=== PATIENT | male | born 1975 | race Caucasian/White ===

== ENCOUNTER 2018-01-25 13:02 | Outpatient (REF) | payer MEDICARE, MEDICAID, SELFPAY ==
[2018-01-25 22:47] LABS: Abs Immature Grans 0.03 k/cumm (0.0-0.09); Absolute Basophil Count 0.03 k/cumm (0.0-0.2); Absolute Eosinophil Count 0.13 k/cumm (0.0-0.7); Absolute Lymphocyte Count 3.97 k/cumm (1.2-3.4); Absolute Monocyte Count 0.66 k/cumm (0.11-0.7); Absolute Neutrophil Count 4.84 k/cumm (1.2-6.7); Basophils % 0.3; Eosinophils % 1.3; HCT 41.4 % (40.0-50.0); HGB 13.8 g/dL (13.5-17.5); Immature Grans % 0.3; Lymphocytes % 41.1; Mean Corp. HGB Concentration 33.3 g/dL (32.0-36.0); Mean Corpuscular Hemoglobin 31.4 pg (27.0-33.0); Mean Corpuscular Volume 94.1 fL (80-95); Mean Platelet Volume 10.7 fL (8.0-11.0); Monocytes % 6.8; Neutrophils % 50.2; Platelet Count 284 x1000/uL (130-400); White Blood Cell Count 9.66 k/cumm (4.4-10.8)
[2018-01-25 22:56] LABS: ALT 31 U/L (12-78); AST 13 U/L (15-37); Albumin 3.8 g/dL (3.4-5.0); Alkaline Phosphatase 72 U/L (46-116); Anion Gap 7.8 mmol/L (3-11); BUN 9 mg/dL (7-18); Bilirubin, Total 0.3 mg/dL (0.2-1.0); CO2 30.2 mmol/L (21.0-32.0); CREATININE 0.94 mg/dL (0.70-1.30); Calcium 9.3 mg/dL (8.5-10.1); Chloride 106 mmol/L (98-107); Cholesterol 208 mg/dL (50-200); Glucose 87 mg/dL (70-100); HDL Cholesterol 41 mg/dL (40-60); LDL CHOLESTEROL 133 mg/dL (<100); Potassium 4.5 mmol/L (3.5-5.1); Sodium 144 mmol/L (136-145); Total Protein 7.4 g/dL (6.4-8.2); Triglyceride 188 mg/dL (30-150)
== END 2018-01-25 13:22 ==
LOC: NCHCN 13:02
PROVIDERS: Visit Provider Internal Medicine
DX: E78.5 Hyperlipidemia, unspecified (principal); Z51.81 Encounter for therapeutic drug level monitoring
CPT/HCPCS: 80053; 80061; 83721; 85025

== ENCOUNTER 2019-02-22 17:24 | Outpatient (REF) | payer MEDICARE, MEDICAID, SELFPAY ==
[2019-02-22 22:21] LABS: Abs Immature Grans 0.01 k/cumm (0.0-0.09); Absolute Basophil Count 0.03 k/cumm (0.0-0.2); Absolute Eosinophil Count 0.06 k/cumm (0.0-0.7); Absolute Lymphocyte Count 3.06 k/cumm (1.2-3.4); Absolute Monocyte Count 0.48 k/cumm (0.11-0.7); Absolute Neutrophil Count 3.11 k/cumm (1.2-6.7); Basophils % 0.4; Eosinophils % 0.9; HCT 43.1 % (40.0-50.0); HGB 14.8 g/dL (13.5-17.5); Immature Grans % 0.1 %; Lymphocytes % 45.3; Mean Corp. HGB Concentration 34.3 g/dL (32.0-36.0); Mean Corpuscular Hemoglobin 31.3 pg (27.0-33.0); Mean Corpuscular Volume 91.1 fL (80-95); Monocytes % 7.1; Neutrophils % 46.2; Platelet Count 289 x1000/uL (130-400); RBC 4.73 m/cumm (4.50-6.00); RBC Distribution Width 13.1 % (11.8-14.1); White Blood Cell Count 6.75 k/cumm (4.4-10.8)
[2019-02-22 22:39] LABS: ALT 18 U/L (16-63); AST 13 U/L (15-37); Albumin 4.2 g/dL (3.4-5.0); Alkaline Phosphatase 85 U/L (46-116); Anion Gap 9.4 mmol/L (3-11); BUN 15 mg/dL (7-18); Bilirubin, Total 0.4 mg/dL (0.2-1.0); CO2 28.6 mmol/L (21.0-32.0); CREATININE 1.07 mg/dL (0.70-1.30); Calcium 9.8 mg/dL (8.5-10.1); Calculated LDL 118 mg/dL; Chloride 103 mmol/L (98-107); Cholesterol 204 mg/dL (<200); Glucose 77 mg/dL (74-106); HDL Cholesterol 45 mg/dL (40-60); Potassium 4.3 mmol/L (3.5-5.1); Sodium 141 mmol/L (136-145); Triglyceride 207 mg/dL (<150)
== END 2019-02-22 17:44 ==
LOC: NCHCN 17:24
PROVIDERS: Visit Provider Internal Medicine
DX: E78.89 Other lipoprotein metabolism disorders (principal); R56.9 Unspecified convulsions; Z51.81 Encounter for therapeutic drug level monitoring
CPT/HCPCS: 80053; 80061; 80164; 85025

== ENCOUNTER 2020-03-03 15:40 | Outpatient (REF) | payer MEDICARE, MEDICAID, SELFPAY ==
[2020-03-07 12:03] LABS: Testosterone, Free 2.75 ng/dL (4.46-17.1); Testosterone, Total 86 ng/dL (240-950)
== END 2020-03-03 16:00 ==
LOC: NCHCN 15:40
PROVIDERS: Visit Provider Internal Medicine
DX: Z51.81 Encounter for therapeutic drug level monitoring (principal); Z13.29 Encounter for screening for other suspected endocrine disorder
CPT/HCPCS: 84402; 84403

== ENCOUNTER 2020-11-07 11:57 | Outpatient (REF) | payer MEDICARE, MEDICAID, SELFPAY ==
[2020-11-18 13:46] LABS: Testosterone, Total 571 ng/dL (240-950)
== END 2020-11-07 11:58 | disposition home or self-care (01) ==
LOC: NCHCN 11:57
PROVIDERS: Visit Provider Internal Medicine
DX: E29.1 Testicular hypofunction (principal)
CPT/HCPCS: 84402; 84403

== ENCOUNTER 2021-08-21 17:45 | Outpatient (REF) | payer MEDICARE, MEDICAID, SELFPAY ==
[2021-08-21 18:08] LABS: Calculated LDL 114 mg/dL (<100); Cholesterol 202 mg/dL (<200); HDL Cholesterol 45 mg/dL (40-60); Triglyceride 218 mg/dL (<150)
[2021-09-11 11:34] LABS: Testosterone, Free 32.1 ng/dL (4.26-16.4); Testosterone, Total 728 ng/dL (240-950)
== END 2021-08-21 17:46 | disposition home or self-care (01) ==
LOC: NCHCN 17:45
PROVIDERS: Visit Provider Nurse Practitioner Family
DX: R79.89 Other specified abnormal findings of blood chemistry (principal); E29.1 Testicular hypofunction
CPT/HCPCS: 80061; 84402; 84403

== ENCOUNTER 2021-12-21 15:52 | Outpatient (REF) | payer MEDICARE, MEDICAID, SELFPAY ==
[2021-12-21 15:59] LABS: Calculated LDL 77 mg/dL (<100); Cholesterol 157 mg/dL (<200); HDL Cholesterol 53 mg/dL (40-60); Triglyceride 136 mg/dL (<150)
[2021-12-28 15:29] LABS: Testosterone, Free 4.07 ng/dL (4.26-16.4); Testosterone, Total 128 ng/dL (240-950)
== END 2021-12-21 15:53 | disposition home or self-care (01) ==
LOC: NCHCN 15:52
PROVIDERS: Visit Provider Nurse Practitioner Family
DX: E78.5 Hyperlipidemia, unspecified (principal); E29.1 Testicular hypofunction
CPT/HCPCS: 80061; 84402; 84403

== ENCOUNTER 2023-03-23 17:49 | Outpatient (REF) | payer MEDICARE, MEDICAID, SELFPAY ==
[2023-03-23 16:04] LABS: HCT 39.5 % (40.0-50.0); HGB 13.6 g/dL (13.5-17.5); MCH 31.3 pg (27.0-33.0); MCHC 34.4 % (32.0-36.0); MCV 91 fL (80-95); Platelet Count 285 10^3/uL (130-400); RBC 4.34 10^6/uL (4.36-5.78); RDW 13.2 % (11.8-14.1); RDW-SD 44.5 fL; WBC 6.99 10^3/uL (4.4-10.8)
[2023-03-23 17:16] LABS: ALT 45 U/L (16-63); AST 22 U/L (15-37); Albumin 4.1 g/dL (3.4-5.0); Alkaline Phosphatase 89 U/L (46-116); Anion Gap 13.8 mmol/L (3-11); BUN 20 mg/dL (7-18); Bilirubin, Total 0.4 mg/dL (0.2-1.0); CO2 23.2 mmol/L (21.0-32.0); Calcium 9.9 mg/dL (8.5-10.1); Calculated LDL 68 mg/dL (<100); Chloride 107 mmol/L (98-107); Cholesterol 145 mg/dL (<200); Estimated GFR 93.42 (mL/min/1.73m2); Glucose 105 mg/dL (74-106); HDL Cholesterol 48 mg/dL (40-60); Potassium 4.8 mmol/L (3.5-5.1); Sodium 144 mmol/L (136-145); Total Protein 8.1 g/dL (6.4-8.2); Triglyceride 149 mg/dL (<150)
--- OUTSIDE RECORDS SUMMARY | 2023-03-23 17:51 | XMS_ITS | CCD ---
Author Name Unknown Address [address] [place] [address] [phone] Organization Unknown Address [address] [place] [address] [phone] Care Team Providers Care Sound Editor Name Role Phone GONZALO MONTEZ Attending Physician [phone] GONZALO MONTEZ Rounding (Secondary) Physician [phone] Vital Signs Unknown or Not Available. Allergies Allergy Code Allergy Type Reaction Status No Known Allergies {Clinical monitoring unavailable} 0 Drug allergy Active Procedures Unknown or Not Available. History of Immunizations Unknown or Not Available. Problems Unknown or Not Available. Results Unknown or Not Available. Active Medications Unknown or Not Available. Medications Administered During Visit Unknown or Not Available. Encounters Encounter Diagnosis Diagnosis Code Start Date Chest pain, unspecified R079 10/10/19 22 Social History Smoking Status Code Start Date End Date Current every day smoker [id number] Patient Decision Aids Unknown or Not Available. Discharge Instructions You were admitted to [facility] on 10/09/2021 15:03 with a principal diagnosis of Chest pain, unspecified You were discharged from [facility] on 10/09/2021 00:00 Should you have any questions prior to discharge, please contact a member of your healthcare team. If you have left the hospital and have any questions, please contact your primary care physician. Chief Complaint and Reason For Visit Unknown or Not Available. Function Status Unknown or Not Available. Plan of Care Unknown or Not Available. Referral/Transition of Care Unknown or Not Available.
--- OUTSIDE RECORDS SUMMARY | 2023-03-23 17:51 | XMS_ITS | CCD ---
Author Name Unknown Address [address], [place] [id number] Organization Unknown Address [address], [place] [id number] Care Team Providers Care Bull Wheel Worker Name Role Phone JOLANTA MCDONOUGH Attending Physician [phone] Vital Signs Vital Sign Value Unit Date/Time Recent/Initial ? BP Systolic 132 mmHg 12/13/2022 13:56 Initial VS BP Diastolic 68 mmHg 12/13/2022 13:56 Initia l VS Respiratory Rate 18 bpm 12/13/2022 13:56 In itial VS Heart Rate 61 bpm 12/13/2022 13:56 Initial VS O2 % BldC Oximetry 100 % 12/13/2022 13:56 Initial VS Body Temperature 36.4 degrees 12/13/2022 13:56 In itial VS BP Systolic 127 mmHg 12/13/2022 14:24 Most Re cent VS BP Diastolic 80 mmHg 12/13/2022 14:24 Most R ecent VS Respiratory Rate 16 bpm 12/13/2022 14:[address] Recent VS Heart Rate 62 bpm 12/13/2022 14:24 Most Rec ent VS O2 % BldC Oximetry 96 % 12/13/2022 14:24 Most Recent VS Allergies Allergy Code Allergy Type Reaction Status No Known Allergies {Clinical monitoring unavailable} 0 Drug allergy Active Procedures Procedure Code Procedure Type Date Colonoscopy, Flexible, Proxi mal To Splenic Flexure; w/Bx, Single/Multiple 01982 CPT 12/13/2022 History of Immunizations Unknown or Not Available. Problems Unknown or Not Available. Results Unknown or Not Available. Active Medications Unknown or Not Available. Medications Administered During Visit Unknown or Not Available. Encounters Encounter Diagnosis Diagnosis Code Start Date Encounter for screening for malignant neoplasm o f colon Z1211 12/13/2022 Social History Smoking Status Code Start Date End Date Current every day smoker [id number] Patient Decision Aids Unknown or Not Available. Discharge Instructions You were admitted to [facility] on 12/13/2022 11:56 with a principal diagnosis of Encounter for screening for malignant neoplasm of colon You had the following procedures done:Colonoscopy, Flexible, Proximal To Splenic Flexure; w/Bx, Single/Multiple You were discharged from [facility] on 12/13/2022 14:36 Should you have any questions prior to [...]
== END 2023-03-23 17:50 | disposition home or self-care (01) ==
LOC: NCHCN 17:49
PROVIDERS: Visit Provider Internal Medicine
DX: E78.5 Hyperlipidemia, unspecified (principal)
CPT/HCPCS: 80053; 80061; 85027

== ENCOUNTER 2023-05-18 14:43 | Outpatient (REF) | payer MEDICARE, MEDICAID, SELFPAY ==
[2023-05-18 17:30] LABS: Hemoglobin A1C 5.9 % (<5.7)
[2023-05-19 19:08] LABS: Hepatitis C Ab w Rflx HCV PCR Negative (Negative)
[2023-05-19 19:10] LABS: HIV-1/2 Ag & Ab Screen Negative (Negative)
[2023-05-22 18:15] LABS: Testosterone, Total 487 ng/dL (240-950)
== END 2023-05-18 14:44 | disposition home or self-care (01) ==
LOC: NCHCN 14:43
PROVIDERS: Visit Provider Internal Medicine
DX: R73.01 Impaired fasting glucose (principal); Z00.00 Encounter for general adult medical examination without abnormal findings; Q98.4 Klinefelter syndrome, unspecified
CPT/HCPCS: 84403; 86803; 87389; 83036

== ENCOUNTER 2023-06-20 16:04 | Outpatient (REF) | payer MEDICARE, MEDICAID, SELFPAY ==
[2023-06-20 21:38] LABS: Anion Gap 8.6 mmol/L (3-11); BUN 16 mg/dL (7-18); CO2 27.4 mmol/L (21.0-32.0); CREATININE 1.1 mg/dL (0.70-1.30); Calcium 9.6 mg/dL (8.5-10.1); Chloride 107 mmol/L (98-107); Estimated GFR 83.32 (mL/min/1.73m2); Glucose 92 mg/dL (74-106); Potassium 4.6 mmol/L (3.5-5.1); Sodium 143 mmol/L (136-145)
== END 2023-06-20 16:05 | disposition home or self-care (01) ==
LOC: NCHCN 16:04
PROVIDERS: Visit Provider Internal Medicine
DX: I10 Essential (primary) hypertension (principal)
CPT/HCPCS: 80048

== ENCOUNTER 2024-03-19 16:53 | Outpatient (REF) | payer MEDICARE, SELFPAY, MEDICAID ==
--- OUTSIDE RECORDS SUMMARY | 2024-03-19 17:02 | XMS_ITS ---
Author Organization Unknown Address [address] [place] [address] [phone] Phone Care Team Providers Care Organ Teacher Name Role Phone MELIDA Ojeda Attending Unavailable Social History Type Status Start Date End Date Code Code Syst em Smoking History Current every day smoker [id number] SNOMED CT Sex Male Hospital Discharge Instructions Should you have any questions prior to discharge, please contact a member of your healthcare team. If you have left the hospital and have any questions, please contact your primary care physician. Reason For Referral No Data Found Allergies and Adverse Reactions Allergy Substance Reaction Severity Start Date Concern Status Co de Code System No Known Allergies Moderate Active Plan of Treatment No Data Found Encounters Encounter Diagnosis Start Date Code Code Sys tem Chest pain, unspecified 10/09/2021 SNOM ED-CT Personal Care Team Section Performer Name Performer Role Active Date Inactive Da te
--- OUTSIDE RECORDS SUMMARY | 2024-03-19 17:02 | XMS_ITS | Encounter Summary ---
Author Organization [facility] Address [address] [place] [address] Care Team Providers Care Wildlife Refuge Specialist Name Role Phone Mainor Blackwell MD Primary Care Provider Un available Encounter Details Date Type Department Care Team (Late st Contact Info) Description 12/29/2009 Results Only [facility] Spine Program - [address] [place], [place] [phone] Domitila Aleman, PA-C Social History Tobacco Use Types Packs/Day Years Used Date Smoking Tobacco: Every Day Cigarettes 0.5 7 Alcohol Use Standard Drinks/Week Comments Yes 0 (1 standard drink = 0.6 oz pur e alcohol) rare Sex and Gender Information Value Date Recorded Sex Assigned at Not on file Legal Sex Male 17:46 EST Gender Identity Not on file Sexual Orientation Not on file documented as of this encounter Plan of Treatment Pending Results Name Type Priority Associated Diagnoses Date /Time OUTSIDE CD - CT NEURO Imaging 19:10 EST documented as of this encounter Visit Diagnoses Not on filedocumented in this encounter Care Teams Wildlife Refuge Specialist Relationship Specialty Start Date End Date Mainor Blackwell MD PCP - General 12/09/09 documented as of this encounter
--- OUTSIDE RECORDS SUMMARY | 2024-03-19 17:02 | XMS_ITS | Encounter Summary ---
Author Organization [facility] Address [address] [place] [address] Care Team Providers Care Equal Opportunity Officer Name Role Phone Mainor Blackwell MD Primary Care Provider Un available Encounter Details Date Type Department Care Team (Late st Contact Info) Description 05/19/2023 Lab Requisition [facility] Pathology & Laboratory Medicine - [address] [id number] Outr Resulting Lab, Provider Social History Tobacco Use Types Packs/Day Years Used Date Smoking Tobacco: Never Assessed Sex and Gender Information Value Date Recorded Sex Assigned at Not on file Legal Sex Male 17:46 EST Gender Identity Not on file Sexual Orientation Not on file documented as of this encounter Plan of Treatment Not on file documented as of this encounter Procedures Procedure Name Priority Date/Time Associated Diagnosis Comments HEPATITIS C AB W REFLEX TO HCV RNA BY PCR Routine 05/18/2023 9:30 EDT documented in this encounter Results * HEPATITIS C AB W REFLEX TO HCV RNA BY PCR (05/18/2023 9:30 EDT) Hep C Antibody Negative Negative 05/19/2023 19:03 EDT [facility] Blood VENOUS BLOOD / Unknown 05/18/2023 9:30 EDT 05/19/2023 17:31 EDT us Provider Outr Resulting Lab CHEMISTRY & BLOOD GA S ORDERABLES Final Result [facility] [address] [place] [address] documented in this encounter Visit Diagnoses Not on filedocumented in this encounter Care Teams Equal Opportunity Officer Relationship Specialty Start Date End Date Mainor Blackwell MD PCP - General 12/09/09 documented as of this encounter
--- OUTSIDE RECORDS SUMMARY | 2024-03-19 17:02 | XMS_ITS | Encounter Summary ---
Author Organization [facility] Address [address] [place] [address] Care Team Providers Care Superintendent Power Name Role Phone Mainor Blackwell MD Primary Care Provider Un available Encounter Details Date Type Department Care Team (Late st Contact Info) Description 01/02/[address] [facility] Spine Program - [address] [place] [address] Mainor Blackwell MD Social History Tobacco Use Types Packs/Day Years [...] on file documented as of this encounter Visit Diagnoses Not on filedocumented in this encounter Care Teams Superintendent Power Relationship Specialty Start Date End Date Mainor Blackwell MD PCP - General 12/09/09 documented as of this encounter
--- OUTSIDE RECORDS SUMMARY | 2024-03-19 17:02 | XMS_ITS | Referral Summary ---
Author Organization [facility] Address [address] [place] [address] Care Team Providers Care Gastroenterologist Name Role Phone Mainor Blackwell MD Primary Care Provider Un available Medications divalproex (DEPAKOTE) 250 mg EC tablet Take 250 mg by mouth 3 times daily. Active citalopram (CELEXA) 20 mg tablet Take 20 mg by mouth daily. Active testosterone cypionate (DEPO-TESTOSTERO NE) 100 mg/mL injection Inject 50 mg into the muscle once. Active gabapentin (NEURONTIN) 300 mg capsule Take 1 Cap by mouth 3 times daily. 90 Cap 2 12/24/2009 Active Social History Tobacco Use Types Packs/Day Years Used Date Smoking Tobacco: Every Day Cigarettes 0.5 7 Alcohol Use Standard Drinks/Week Comments Yes 0 (1 standard drink = 0.6 oz pur e alcohol) rare Sex and Gender Information Value Date Recorded Sex Assigned at Not on file Legal Sex Male 17:46 EST Gender Identity Not on file Sexual Orientation Not on file Plan of Treatment Not on file Procedures Procedure Name Priority Date/Time Associated Diagnosis Comments HEPATITIS C AB W REFLEX TO HCV RNA BY PCR Routine 05/18/2023 9:30 EDT from Last 3 Months or Most Recently Relevant to Health Maintenance Results * HEPATITIS C AB W REFLEX TO HCV RNA BY PCR (05/18/2023 9:30 EDT) Hep C Antibody Negative Negative 05/19/2023 19:03 EDT [facility] Blood VENOUS BLOOD / Unknown 05/18/2023 9:30 EDT 05/19/2023 17:31 EDT us Provider Outr Resulting Lab CHEMISTRY & BLOOD GA S ORDERABLES Final Result [facility] [address] [place] [phone] from Last 3 Months or Most Recently Relevant to Health Maintenance Care Teams Gastroenterologist Relationship Specialty Start Date End Date Mainor Blackwell MD PCP - General 12/09/09
--- OUTSIDE RECORDS SUMMARY | 2024-03-19 17:02 | XMS_ITS | Encounter Summary ---
Author Organization [facility] Address [address] [place] [address] Care Team Providers Care Riddler Operator Name Role Phone Mainor Blackwell MD Primary Care Provider Un available Encounter Details Date Type Department Care Team (Late st Contact Info) Description 05/19/2023 Lab Requisition [facility] Pathology & Laboratory Medicine - [facility] [address] [place], [place] [address] Outr Resulting Lab, Provider Social History Tobacco [...] Procedure Name Priority Date/Time Associated Diagnosis Comments HIV 1/2 ANTIGEN AND ANTIBODY, 4TH GENERATION Routine 05/18/2023 9:30 EDT documented in this encounter Results * HIV 1/2 ANTIGEN AND ANTIBODY, 4TH GENERATION (05/18/2023 9:30 EDT) HIV 1 and 2 Antibody/p24 Antigen, 4th Generation Negative Negative 05/19/2023 19:[address] [facility] Comment:If acute HIV-1 infec tion is suspected in a high risk patient, submit plasma specimen for HIV-1 RNA quantitation test. Blood VENOUS BLOOD / Unknown 05/18/2023 9:30 EDT 05/19/2023 17:31 EDT [address]arrative [facility] - 05/19/2023 19:05 EDT Fourth Generation assay performed on the Siemens Centaur XPT. us Provider Outr Resulting Lab IMMUNOLOGY AND SEROL OGY ORDERABLES Final Result [facility] [address] [place] [phone] documented in this encounter Visit Diagnoses Not on filedocumented in this encounter Care Teams Riddler Operator Relationship Specialty Start Date End Date Mainor Blackwell MD PCP - General 12/09/09 documented as of this encounter
--- OUTSIDE RECORDS SUMMARY | 2024-03-19 17:02 | XMS_ITS ---
Author Organization Unknown Address [address] [place] [phone] Phone Care Team Providers Care Microwave Engineer Name Role Phone CEASAR Pastrana Attending Stevie Devi Primary Unavailable Social History Type Status Start Date End Date Code Code Syst em Smoking History Current every day smoker [id number] SNOMED CT Sex Male Vital Signs Vital Sign Value Unit [place] Value [place] Unit Date/Time Recent/Initial? Code Code System Systolic Blood Pressure 127 mm[Hg] 12/13/2022 14:24 Most Recent 8480-6 LOINC Diastolic Blood Pressure 80 mm[Hg] 12/13/2022 14:24 Most Recent 8462-4 LOINC Systolic Blood Pressure 132 mm[Hg] 12/13/2022 13:56 Initial 8480-6 LOINC Diastolic Blood Pressure 68 mm[Hg] 12/13/2022 13:56 Initial 8462-4 LOINC O2 Saturation 96 % 2022 14:24 Most Recent 96630- 5 LOINC O2 Saturation 100 % 2022 13:56 Initial 49390- 5 LOINC Pulse 62.0 /min 12/13/2022 14:24 Most Recent 8867-4 LOINC Pulse 61.0 /min 12/13/2022 13:56 Initial 8867-4 LOINC Respiration 16 /min 12/14/19 23 14:24 Most Recent 9279-1 LOINC Respiration 18 /min 12/14/19 13:56 Initial 9279-1 LOINC Temperature 36.4 Omayra 97.5 F 12/14/19 23 13:56 Initial 8310-5 LOINC Hospital Discharge Instructions Should you have any questions prior to discharge, please contact a member of your healthcare team. If you have left the hospital and have any questions, please contact your primary care physician. Reason For Referral No Data Found Procedures Procedure Name Date Status Code Code Syste m Colonoscopy, Flexible, Proxi mal To Splenic Flexure; w/Bx, Single/Multiple 12/13/2022 completed [address]82 C PT Allergies and Adverse Reactions Allergy Substance Reaction Severity Start Date Concern Status Co de Code System No Known Allergies Moderate Active Plan of Treatment No Data Found Encounters Encounter Diagnosis Start Date Code Code Sys tem Encounter for screening for malignant neoplasm of colo n 12/13/2022 SNOMED-CT Personal Care Team Section Performer Name Performer Role Active Date Inactive Da te
--- OUTSIDE RECORDS SUMMARY | 2024-03-19 17:02 | XMS_ITS | Encounter Summary ---
Author Organization [facility] Address [address] [place] [address] Care Team Providers Care Pea Viner Mechanic Name Role Phone Mainor Blackwell MD Primary Care Provider Un available Reason for Referral * Consult, Test and Treat (Routine) - Closed Specialty Diagnoses / Procedures Referred By Michael uriostegui Referred To Contact Diagnoses Low back pain Lumbar stenosis with neurogenic claudication Domitila Aleman PA-C Referral ID Status Reason Start Date Expiration Date V isits Requested Visits Authorized [id number] Closed Specialty Services Required 12/24/2009 1 1 Question Answer Reason for Request: low back pain, lumbar stenosis Reason for Visit * Reason Comments Back Pain Encounter Details Date Type Department Care Team (Late st Contact Info) Description 12/24/2009 11:00 EST Office Visit [facility] Spine Program - [address] [address] Domitila Aleman PA-C Low back pain (Primary Dx); Lumbar stenosis with neurogenic claudication Discharge Disposition: Auto Discharge Social History Tobacco Use Types Packs/Day Years [...] on file documented as of this encounter Patient Instructions * Patient Instructions* Domitila Delacruz PA - 12/24/2009 11:56 EST - Call in 10 days about Neurontin. - Take 300 mg three times a day. If in 3 days you do not feel any effects then increase the eveningdose to 600mg, take for 3 days and then increase the afternoon dose to 600 mg if needed, and then the morning dose to 600 mg if you do not feel any effects. - Start PT. documented in this encounter Ordered Prescriptions Prescription Sig Dispense Quantity Refills Last Filled Start Date End Date gabapentin (NEURONTIN) 300 mg capsule Take 1 Cap by mouth 3 times daily. 90 Cap 2 12/24/2009 documented in this encounter Discharge Disposition Disposition Code Departure Means Destination Auto Discharge documented in this encounter Progress Notes * Domitila Delacruz PA - 12/24/2009 1239 EST Raul Gonzalez is being seen as a consultation from Dr. Blackwell. Chief Complaint Patient presents with ??? Back Pain The primary encounter diagnosis was Low back pain. A diagnosis of Lumbar stenosis with neurogenic claudication was also pertinent to this visit. HPI: Mr. Gonzalez is being evaluated for low back pain and numbness, paresthesias, and weakness in his left leg. The back is located in the low lumbar region in the midline and also to the left. He states his whole left leg goes numb including his foot. When he walks greater than 1/2 mile of when sta nding for too long he starts to have low back pain , then shooting pains, and then his leg goes numb. The pain radiates down the front of his thigh, into his medial calf, and medial aspect of his ankle. He states that being in any position too long will also increase the pain and numbness. Lying down and sometimes sitting is the only way he gets relief. He has 55/45 back and leg pain. His past medical history is significant for scoliosis with T10-L5 fusion in 1994. There is no problem list on file for this patient. Past Medical History Diagnosis Date ??? Scoliosis ??? Klinefelters syndrome ??? Depression ??? Sexual dysfunction Past Surgical History Procedure Date ??? Spinal fusion 1994 History Substance Use Topics ??? Tobacco Use: Yes -- 0.5 packs/day for 7 years ??? Alcohol Use: Yes rare History reviewed. No pertinent family history. Current outpatient prescriptions Medication Sig Dispense Refill ??? divalproex (DEPAKOTE) 250 mg EC tablet Take 250 mg by mouth 3 times daily. ??? citalopram (CELEXA) 20 mg tablet Take 20 mg by mouth daily. ??? testosterone cypionate (DEPO-TESTOSTERONE) 100 mg/mL injection Inject 50 mg into the muscle once. ??? gabapentin (NEURONTIN) 300 mg capsule Take 1 Cap by mouth 3 times daily. 90 Cap 2 Not on File Review of Systems Constitutional: Positive for activity change. Negative for fever, chills and unexpected weight change. HENT: Negative. Eyes: Negative. Respiratory: Negative for shortness of breath and wheezing. Cardiovascular: Negative for chest pain and palpitations. Gastrointestinal: Negative for diarrhea and constipation. Genitourinary: Positive for difficulty urinating. Difficulty starting and stopping Musculoskeletal: Positive for back pain. Negative for gait problem. Skin: Negative. Neurological: Positive for weakness and numbness. Negative for headaches. Hematological: Does not bruise/bleed easily. Psychiatric/Behavioral: Positive for dysphoric mood. The patient is nervous/anxious. Physical Exam Constitutional: He is oriented to person, place, and time. He appears well- developed and well-nourished. HENT: Head: Normocephalic and atraumatic. Eyes: Extraocular motions are normal. Cardiovascular: Normal rate. Pulmonary/Chest: Effort normal. Musculoskeletal: Normal gait, patient is able to walk on his heels and toes without discomfort. Trunk flexion with hands to knees and ~ 10 degrees of extension. No palpable lumbar tenderness. 5/5 LE strength bl. Positive right and left straight leg raise at 70 degrees with pain elicited in bl dorsum of feet. Neurological: He is alert and oriented to person, place, and time. 2+ patellar and achilles reflexes bl, LE sensation to light is intact bl, no clonus, babinski is down going. Skin: Skin is warm and dry. No rashes, lesions, or hair daisy. Psychiatric: He has a normal mood and affect. Ortho Exam Neurologic Exam Mental Status Oriented to person, place, and time. Cranial Nerves CN III, IV, Extraocular motions are normal. The prior workup of the patient includes: Lumbar CT (11/28/09) - L4-5 central canal stenosis, bl neuroformainal stenosis, L5-S1 bl foraminal stenosis and spondylolysis. Radiology: AP, lateral, flexion, and extension x-rays of the lumbosacral spine reveal levoscoliosiswith rods and hooks in place T10-L4. Fusion mass L2-L5. Pars defect L5 with grade 1 anterolisthesisL5 over S1. Left lateral listhesis grade 1 at L4 on L5. Assessment: 34 year old male with low back pain and left leg numbness and pain consistent with lumbar spinal stenosis likely affected L4-S1. Orders Placed This Encounter Procedure ??? L spine 4 or more views ??? Ambulatory consult physical therapy Plan: 1) Start neurontin 300 mg three times a day. Increase by 300 mg increments. Patient will call in 10days. 2) Start Physical therapy 3) Activity as tolerated. documented in this encounter Plan of Treatment Scheduled Referrals Name Type Priority Associated Diagnoses Orde r Schedule AMB CONSULT PHYSICAL THERAPY Outpatient Referral Routine Low back pain Lumbar stenosis with neurogenic claudication Ordered: 12/24/2009 documented as of this encounter Procedures Procedure Name Priority Date/Time Associated Diagnosis Comments L SPINE 4 OR MORE VIEWS Routine 12/24/2009 11:40 EST Low back pain documented in this encounter Results * L SPINE 4 OR MORE VIEWS (12/24/2009 11:40 EST) Anatomical Region Laterality Modality Other 12/24/2009 11:4 0 EST 12/25/2009 10:57 EST Narrative 12/25/2009 10:57 EST L SPINE 4 OR MORE VIEWS ??Dec 24, 2009 11:40:00 AM Signs and Symptoms/Comments: ??724.2-LOW BACK PAIN-I9 low back pain Findings: No comparison. Frontal and lateral flexion-extension views of the lumbar spine were performed. There has been spinal fusion present from the lower thoracic spine to the L5 level. There is a mild leftward curvature of the spine. On lateral flexion-extension views, there appears to be very minimal (1 to 2 mm) anterolisthesis of L5 on S1 which does not change with flexion-extension. There is no evidence of hardware failure. Procedure Note 12/25/2009 L SPINE 4 OR MORE VIEWS Dec 24, 2009 11:40:00 AM Signs and Symptoms/Comments: 724.2-LOW BACK PAIN-I9 low back pain Findings: No comparison. Frontal and lateral flexion-extension views of the lumbar spine were performed. There has been spinal fusion present from the lower thoracic spine to the L5 level. There is a mild leftward curvature of the spine. On lateral flexion-extension views, there appears to be very minimal (1 to 2 mm) anterolisthesis of L5 on S1 which does not change with flexion-extension. There is no evidence of hardware failure. us Domitila Aleman PA-C [facility] ORD ERABLES Final Result documented in this encounter Visit Diagnoses Diagnosis Low back pain- Primary Lumbago Lumbar stenosis with neurogenic claudication Spinal stenosis, lumbar region, with neurogenic claudication documented in this encounter Historical Medications * This list may reflect changes made after this encounter. testosterone cypionate (DEPO-TESTOSTERON E) 100 mg/mL injection Inject 50 mg into the muscle once. citalopram (CELEXA) 20 mg tablet Take 20 mg by mouth daily. divalproex (DEPAKOTE) 250 mg EC tablet Take 250 mg by mouth 3 times daily. added in this encounter Care Teams Pea Viner Mechanic Relationship Specialty Start Date End Date Mainor Blackwell MD PCP - General 12/09/09 documented as of this encounter
--- OUTSIDE RECORDS SUMMARY | 2024-03-19 17:02 | XMS_ITS | Clinical Summary ---
Author Organization [facility] Address [address] [place] [address] Care Team Providers Care Recorder [employer] Name Role Phone Mainor Blackwell MD Primary [...] times daily. 90 Cap 2 12/24/2009 Active Surgical History Surgery Date Site/Laterality Comments SPINAL FUSION 1994 Medical History Medical History Date Comments Scoliosis Klinefelters syndrome Depression Sexual dysfunction Seizures (HCC-CMS) Back problem Social History Tobacco Use Types Packs/Day Years Used Date Smoking Tobacco: Every Day Cigarettes 0.5 7 Alcohol Use Standard Drinks/Week Comments Yes 0 (1 standard drink = 0.6 oz pur e alcohol) rare Sex and Gender Information Value Date Recorded Sex Assigned at Not on file Legal Sex Male 17:46 EST Gender Identity Not on file Sexual Orientation Not on file Obstetrics History Plan of Treatment Health Maintenance Due Date Last Done Comments Hepatitis B Vaccine ( of - + 3-dose series) 11/18 COVID-19 Vaccine (2023- season) 2023 Hepatitis C Screen Completed 05/18/2023 Procedures Procedure Name Priority Date/Time Associated Diagnosis Comments HEPATITIS C AB W REFLEX TO HCV RNA BY PCR Routine 05/18/2023 9:30 EDT from Last 3 Months or Most Recently Relevant to Health Maintenance Results * HEPATITIS C AB W REFLEX TO HCV RNA BY PCR (05/18/2023 9:30 EDT) Hep C Antibody Negative Negative 05/19/2023 19:03 EDT [facility] Blood VENOUS BLOOD / Unknown 05/18/2023 9:30 EDT 05/19/2023 17:31 EDT us Provider Outr Resulting Lab CHEMISTRY & BLOOD GA S ORDERABLES Final Result [facility] [address] [place] [address] from Last 3 Months or Most Recently Relevant to Health Maintenance Care Teams [employer] Relationship Specialty Start Date End Date Mainor Blackwell MD PCP - General 12/09/09
[2024-03-19 21:49] LABS: COMMENT (LAB VIEW ONLY) 358.26 mg/dL; Microalb ug/mg Crea 5.7 ug/mg Cr
[2024-03-25 15:10] LABS: Testosterone, Total 811 ng/dL (240-950)
== END 2024-03-19 16:54 | disposition home or self-care (01) ==
LOC: NCHCN 16:53
PROVIDERS: PCP Internal Medicine; Visit Provider Internal Medicine
DX: E11.9 Type 2 diabetes mellitus without complications (principal)
CPT/HCPCS: 84403; 82043; 82570

== ENCOUNTER 2024-06-22 19:38 | Outpatient (REF) | payer MEDICARE, MEDICAID, SELFPAY ==
[2024-06-22 21:16] LABS: HCT 46.3 % (40.0-50.0); MCH 31.7 pg (27.0-33.0); MCHC 34.6 % (32.0-36.0); MCV 92 fL (80-95); MPV 10.4 fL (8.0-11.0); Platelet Count 276 10^3/uL (130-400); RBC 5.04 10^6/uL (4.36-5.78); RDW 12.9 % (11.8-14.1); RDW-SD 43.3 fL; WBC 7.53 10^3/uL (4.4-10.8)
[2024-06-22 21:39] LABS: ALT 33 U/L (16-63); AST 17 U/L (15-37); Albumin 4.1 g/dL (3.4-5.0); Alkaline Phosphatase 76 U/L (46-116); Anion Gap 7.6 mmol/L (3-11); BUN 18 mg/dL (7-18); Bilirubin, Total 0.7 mg/dL (0.2-1.0); CO2 27.4 mmol/L (21.0-32.0); CREATININE 1.1 mg/dL (0.70-1.30); Calcium 9.7 mg/dL (8.5-10.1); Chloride 105 mmol/L (98-107); Estimated GFR 82.81 (mL/min/1.73m2); Glucose 99 mg/dL (74-106); Potassium 4.8 mmol/L (3.5-5.1); Sodium 140 mmol/L (136-145); Total Protein 7.3 g/dL (6.4-8.2)
[2024-07-08 17:58] LABS: Testosterone, Free 16.9 ng/dL (4.26-16.4); Testosterone, Total 520 ng/dL (240-950)
== END 2024-06-22 19:39 | disposition home or self-care (01) ==
LOC: NCHCN 19:38
PROVIDERS: PCP Internal Medicine; Visit Provider Internal Medicine
DX: E11.9 Type 2 diabetes mellitus without complications (principal); R61 Generalized hyperhidrosis; E29.1 Testicular hypofunction
CPT/HCPCS: 80053; 84402; 84403; 85027; 84443

== ENCOUNTER 2024-11-07 16:31 | Outpatient (REF) | payer MEDICARE, MEDICAID, SELFPAY ==
[2024-11-07 21:35] LABS: Glucose Negative (Negative)
== END 2024-11-07 16:32 | disposition home or self-care (01) ==
LOC: NCHCN 16:31
PROVIDERS: PCP Internal Medicine; Visit Provider Nurse Practitioner Family
DX: N39.0 Urinary tract infection, site not specified (principal); Z12.5 Encounter for screening for malignant neoplasm of prostate
CPT/HCPCS: 84153; 81003

== ENCOUNTER 2025-02-05 13:18 | Outpatient (REF) | payer MEDICARE, MEDICAID, SELFPAY ==
[2025-02-06 00:16] LABS: PSA, Screening 0.6 ng/mL (<=2.5)
== END 2025-02-05 13:19 | disposition home or self-care (01) ==
LOC: NCHCN 13:18
PROVIDERS: PCP Internal Medicine; Visit Provider Internal Medicine
DX: Z12.5 Encounter for screening for malignant neoplasm of prostate (principal)
CPT/HCPCS: 84153